=== PATIENT | male | born 1955 | race Hispanic/Latino ===

== ENCOUNTER 2016-11-19 14:07 | Outpatient (CLI) | payer BC ==
--- NOTE | 2016-11-19 14:54 | XRay Report ---
Right hip 3 views: History: Right hip pain. Findings: Mild arthritic changes are noted at the superior lateral aspect of the right hip joint. No fracture. No soft tissue calcification. Impression: Mild arthritic changes right hip.
== END 2016-11-19 14:08 | disposition home or self-care (01) ==
LOC: XRAY 14:07
PROVIDERS: ATTEND Internal Medicine
DX: M25.551 Pain in right hip (principal)

== ENCOUNTER 2017-03-24 09:10 | Outpatient (CLI) | payer BC | END 2017-03-24 09:11 | disposition home or self-care (01) | LOC: ECHO 09:10 | PROVIDERS: ATTEND Internal Medicine Cardiovascular Disease | DX: I51.7 Cardiomegaly (principal); I25.5 Ischemic cardiomyopathy | CPT/HCPCS: 93306 ==

== ENCOUNTER 2017-10-20 07:37 | Outpatient (CLI) | payer BC ==
[2017-10-20] MEDS ORDERED: LEXISCAN IV ONE ×2 (09:22→09:24)
[2017-10-20 10:12] VITALS: BP 129/85
== END 2017-10-20 07:38 | disposition home or self-care (01) ==
LOC: CARD 07:37
PROVIDERS: ATTEND Internal Medicine Cardiovascular Disease
DX: I25.119 Atherosclerotic heart disease of native coronary artery with unspecified angina pectoris (principal); I25.5 Ischemic cardiomyopathy
CPT/HCPCS: 78452; 93017; 93306; A9502; J2785

== ENCOUNTER 2019-05-10 09:01 | Outpatient (CLI) | payer BC | END 2019-05-10 09:02 | disposition home or self-care (01) | LOC: ECHO 09:01 | PROVIDERS: ATTEND Internal Medicine Cardiovascular Disease | DX: I25.10 Atherosclerotic heart disease of native coronary artery without angina pectoris (principal); I10 Essential (primary) hypertension | CPT/HCPCS: 93306 ==

== ENCOUNTER 2019-05-24 08:47 | Outpatient (CLI) | payer BC ==
[2019-05-24] MEDS ORDERED: LEXISCAN IV ONE (11:16)
[2019-05-24 14:31] VITALS: BP 130/83
--- NOTE | 2019-05-25 06:49 | Treadmill Report ---
THALLIUM STRESS TEST REPORT LEFT VENTRICLE: Left ventricular chamber size is within normal spread. A small fixed apical defect consistent with normal apical thinning, otherwise homogeneous uptake of the tracer in all segments, no significant perfusion defects identified. Gated analysis demonstrates normal left ventricular systolic function, ejection fraction 61%. CONCLUSION: Normal myocardial perfusion study. [facility]# [id number] CA/NTS
== END 2019-05-24 08:48 | disposition home or self-care (01) ==
LOC: CARD 08:47
PROVIDERS: ATTEND Internal Medicine Cardiovascular Disease
DX: I25.119 Atherosclerotic heart disease of native coronary artery with unspecified angina pectoris (principal); I10 Essential (primary) hypertension
CPT/HCPCS: 78452; 93017; A9502; J2785

== ENCOUNTER 2020-05-30 11:09 | Outpatient (CLI) | payer BC ==
[2020-05-30 11:50] LABS: Basophils % (Auto) 0.4 % (0.0-1.8); Eosinophils # (Auto) 0.3 K/mm3 (0.0-0.4); Eosinophils % (Auto) 3.2 % (0.0-4.3); Hemoglobin 15.7 gm/dl (11.8-15.2); Lymphocytes # (Auto) 1.7 K/mm3 (1.2-5.4); Lymphocytes % (Auto) 16.3 % (13.4-35.0); Mean Corpuscular HGB Conc 34 % (32-34); Mean Corpuscular Volume 93 fl (84-94); Monocytes # (Auto) 0.7 K/mm3 (0.0-0.8); Monocytes % (Auto) 6.8 % (0.0-7.3); Platelet Count 195 K/mm3 (140-440); Red Blood Count 4.93 M/mm3 (3.65-5.03); Red Cell Distribution Width 12.9 % (13.2-15.2)
[2020-05-30 12:15] LABS: Alanine Aminotransferase 38 units/L (7-56); Albumin 3.9 g/dL (3.9-5); BUN/Creatinine Ratio 14; Blood Urea Nitrogen 14 mg/dL (9-20); Calcium 9.5 mg/dL (8.4-10.2); Chol/HDL Ratio 3.72 %; HDL Cholesterol 51 mg/dL (40-59); Hemolysis Index 4; LDL Cholesterol,Direct 126 mg/dL (50-130)
== END 2020-05-30 11:10 | disposition home or self-care (01) ==
LOC: LAB 11:09
PROVIDERS: ATTEND Internal Medicine
DX: I10 Essential (primary) hypertension (principal)
CPT/HCPCS: 36415; 80053; 80061; 83516; 84153; 84443; 85025

== ENCOUNTER 2020-06-12 08:19 | Outpatient (CLI) | payer BC | END 2020-06-12 08:20 | disposition home or self-care (01) | LOC: ECHO 08:19 | PROVIDERS: ATTEND Internal Medicine Cardiovascular Disease | DX: I25.5 Ischemic cardiomyopathy (principal); I51.7 Cardiomegaly | CPT/HCPCS: 93306 ==